=== PATIENT | female | born 1940 | race African-American/Black ===

== ENCOUNTER 2017-05-17 17:10 | Inpatient (IN) | payer MEDICARE, BC ==
[~2017-05-17] VITALS: Ht 170.2 cm; Wt 59.0 kg
[~2017-05-17 17:10] MED LIST: ATOR20TA PO; CHOL500010 PO; LEVO137T32 PO; MEDR5TAB PO; METF500T4 PO; OGEN PO; POTA20TA82 PO; TRINTELLIX PO; VALS1TAB34 PO; ZOLP10TA2 PO
[2017-05-17] MEDS ORDERED: FLUT1DIS2 (17:27)
[2017-05-17] MEDS ORDERED: CIPR-213 (17:27)
[2017-05-17] MEDS ORDERED: ERGO500013 (17:27)
[2017-05-17] MEDS ORDERED: ONDANSETRON HCL 4MG/2ML VIAL IV STA (19:21)
[2017-05-17 19:45] LABS: BASOPHILS % 0.6 % (0.0-2.0); EOSINOPHILS % 0.6 % (0.0-5.0); HEMATOCRIT. 41.8 % (36.0-48.0); HEMOGLOBIN. 14.2 g/dL (12.0-16.0); LYMPHOCYTES % 15.1 % (20.0-50.0); MEAN CORPUSCULAR HEMOGLOBIN 34.2 pg (28.0-32.0); MEAN CORPUSCULAR VOLUME 100.7 fL (81.0-99.0); MEAN PLATELET VOLUME 9.1 fl (7.4-10.4); MONOCYTES % 5.8 % (2.0-8.0); NEUTROPHILS % 77.9 % (40.0-76.0); PLATELET 255 x1000/uL (130-400); RED BLOOD CELL COUNT 4.15 mill/uL (4.2-5.4); RED CELL DISTRIBUTION WIDTH 13.3 % (11.6-14.6)
[2017-05-17 19:49] LABS: INR 1.1; PROTHROMBIN TIME 11.5 sec (9.4-11.6)
[2017-05-17 19:55] LABS: CARBON DIOXIDE 21 mEq/L (21-32); CHLORIDE 105 mEq/L (98-107)
[2017-05-17 19:58] LABS: TROPONIN I < 0.02 ng/mL (0.00-0.04)
[2017-05-17] MEDS ORDERED: SODIUM CHLORIDE 0.9% 1,000 ML IV ONE (21:00)
[2017-05-17] MEDS ORDERED: SODIUM CHLORIDE 0.9% 1,000 ML IV SCH (21:35)
[2017-05-17] MEDS ORDERED: ACETAMINOPHEN 325MG TABLET PO PRN (21:45)
[2017-05-17] MEDS ORDERED: IBUPROFEN 600MG TABLET PO PRN (21:45)
[2017-05-18] VITALS (7 sets, daily range): BP systolic 113–155; BP diastolic 44–66
[2017-05-18] MEDS ORDERED: DIPHENHYDRAMINE 50MG/ML VIAL IV PRN (02:30)
[2017-05-18] MEDS ORDERED: NA PHOS,M-B/NA PHOS,DI-BA ENEMA 118ML PR PRN (02:30)
[2017-05-18] MEDS ORDERED: NACL IV PRN (02:30)
[2017-05-18] MEDS ORDERED: SODIUM CHLORIDE IV PRN (02:30)
[2017-05-18] MEDS ORDERED: MAGNESIUM/ALUMINUM HYDROXIDE/SIMETHICONE 30ML UDC PO PRN (02:30)
[2017-05-18] MEDS ORDERED: ACETAMINOPHEN 325MG TABLET PO PRN (02:30)
[2017-05-18] MEDS ORDERED: IPRATROPIUM/ALBUTEROL 0.5-3(2.5)MG/3ML NEB INH PRN (02:30)
[2017-05-18] MEDS ORDERED: DOCUSATE SODIUM 100MG CAPSULE PO PRN (02:30)
[2017-05-18] MEDS ORDERED: GUAIFENESIN 200MG/10ML SUGAR FREE UDC PO PRN (02:30)
[2017-05-18] MEDS ORDERED: LORAZEPAM 0.5MG TABLET PO PRN (02:30)
[2017-05-18] MEDS ORDERED: ONDANSETRON HCL 4MG/2ML VIAL IV PRN (02:30)
[2017-05-18] MEDS ORDERED: DEXT IV PRN (02:30)
[2017-05-18] MEDS: IPRATROPIUM/ALBUTEROL 0.5-3(2.5)MG/3ML NEB HHN SCH ×5 (04:45→19:28)
[2017-05-18] MEDS: SODIUM CHLORIDE 0.9% INJ 3ML FLUSH IVF SCH ×3 (06:00→22:00)
[2017-05-18 06:33] LABS: BASOPHILS % 0.7 % (0.0-2.0); EOSINOPHILS % 1.2 % (0.0-5.0); HEMOGLOBIN. 12.5 g/dL (12.0-16.0); LYMPHOCYTES % 34.5 % (20.0-50.0); MEAN CORPUSCULAR HEMOGLOBIN 35.2 pg (28.0-32.0); MEAN CORPUSCULAR VOLUME 101.2 fL (81.0-99.0); MEAN PLATELET VOLUME 9.6 fl (7.4-10.4); MONOCYTES % 8.3 % (2.0-8.0); NEUTROPHILS % 55.3 % (40.0-76.0); PLATELET 224 x1000/uL (130-400); RED BLOOD CELL COUNT 3.56 mill/uL (4.2-5.4); RED CELL DISTRIBUTION WIDTH 13.1 % (11.6-14.6)
[2017-05-18] MEDS ORDERED: DEXTROSE 50% WATER 50ML SYRINGE IV PRN (07:30)
[2017-05-18 07:42] LABS: PHOSPHORUS 2.2 mg/dL (2.5-4.9)
[2017-05-18] MEDS: BLOOD SUGAR DIAGNOSTIC STRIP TEST SCH ×4 (07:42→21:00)
[2017-05-18] MEDS: INSULIN LISPRO 100 UNITS/ML SUBCUT SCH ×3 (07:50→18:41)
[2017-05-18 08:15] LABS: CLARITY URINE CLEAR (CLEAR); COLOR URINE YELLOW (YELLOW); GLUCOSE URINE NEGATIVE (NEGATIVE); KETONES URINE NEGATIVE (NEGATIVE); LEUKOCYTE ESTERASE URINE NEGATIVE (NEGATIVE); NITRITE URINE NEGATIVE (NEGATIVE); OCCULT BLOOD URINE NEGATIVE (NEGATIVE); PH URINE 6.5 (4.5-8.0); PROTEIN URINE NEGATIVE (NEGATIVE); SPECIFIC GRAVITY URINE 1.015 (1.005-1.030)
[2017-05-18 08:40] LABS: *AMPHETAMINES SCREEN URINE NEGATIVE (NEGATIVE); *BARBITURATES SCREEN URINE NEGATIVE (NEGATIVE); *BENZODIAZEPINES SCREEN URINE NEGATIVE (NEGATIVE); *COCAINE SCREEN URINE NEGATIVE (NEGATIVE); CANNABINOID URINE SCREEN PRESUMTIVE POSITIVE (NEGATIVE); METHADONE URINE SCREEN NEGATIVE (NEGATIVE); OPIATES URINE SCREEN NEGATIVE (NEGATIVE); PHENCYCLIDINE URINE SCREEN NEGATIVE (NEGATIVE)
[2017-05-18] MEDS ORDERED: POTASSIUM PHOS,M-BASIC-D-BASIC 20 MMOL in DEXT 5% WATER 243.3333 ML IV SCH (12:00)
[2017-05-18] MEDS ORDERED: MAGNESIUM 4 G PREMIX 100 ML IV SCH (12:00)
[2017-05-19] VITALS: BP 144/56
[2017-05-19] MEDS: INSULIN LISPRO 100 UNITS/ML SUBCUT SCH ×5 (00:08→21:00)
[2017-05-19] MEDS: MVI, ADULT NO.1 10 ML in DEXT 5%/0.45% NACL 1000ML 1,000 ML IV SCH ×4 (00:14→00:20)
[2017-05-19] MEDS: IPRATROPIUM/ALBUTEROL 0.5-3(2.5)MG/3ML NEB HHN SCH ×6 (00:17→20:38)
[2017-05-19 07:14] LABS: CARBON DIOXIDE 26 mEq/L (21-32); CHLORIDE 109 mEq/L (98-107); PHOSPHORUS 3.1 mg/dL (2.5-4.9); T4 FREE 1.69 ng/dL (0.76-1.46)
[2017-05-19] MEDS: BLOOD SUGAR DIAGNOSTIC STRIP TEST SCH ×4 (07:20→21:13)
[2017-05-19 07:22] LABS: HEPATITIS B SURFACE ANTIGEN NEGATIVE
[2017-05-19 07:49] LABS: HEPATITIS B CORE AB IGM NEGATIVE
[2017-05-19 07:51] LABS: HEPATITIS A AB IGM NEGATIVE (NEGATIVE)
[2017-05-19 08:00] VITALS: BP 127/48
[2017-05-19 08:35] LABS: VITAMIN B12 SERUM > 2000.0 pg/mL (211-911)
[2017-05-19 12:00] VITALS: BP 151/58
[2017-05-19] MEDS ORDERED: POTASSIUM BICARB/CIT ACID 25 MEQ TABLET.EFF PO SCH (12:00)
[2017-05-19 12:08] LABS: BG BASE EXCESS -2.2 mmol/L (-2.0-2.0); BG CARBOXYHEMOGLOBIN 0.5 % (0.5-1.5); BG DEOXYHEMOGLOBIN 2.9 % (0.0-5.0); BG FRACTION INSPIRED OXYGEN 21; BG HCO3 ACT 21.8 mmol/L (22.0-26.0); BG METHEMOGLOBIN 0.2 % (0.0-1.5); BG OXYGEN SATURATION 97.1 % (92.0-98.5); BG OXYHEMOGLOBIN 96.4 % (94.0-97.0); BG PCO2 34.7 mmHg (35.0-45.0); BG PH 7.415 (7.350-7.450); BG SAMPLE SITE RIGHT RADIAL; BG TOTAL HEMOGLOBIN 13.4 g/dL (12.0-18.0); BG VENT MODE ROOM AIR
[2017-05-19] MEDS: SODIUM CHLORIDE 0.9% INJ 3ML FLUSH IVF SCH ×2 (14:07→21:14)
[2017-05-19 16:00] VITALS: BP 134/61
[2017-05-19 20:00] VITALS: BP 163/73
[2017-05-20] VITALS: BP 150/66
[2017-05-20] MEDS: IPRATROPIUM/ALBUTEROL 0.5-3(2.5)MG/3ML NEB HHN SCH ×2 (00:48→04:00)
[2017-05-20 04:00] VITALS: BP 138/54
[2017-05-20] MEDS: SODIUM CHLORIDE 0.9% INJ 3ML FLUSH IVF SCH (07:06)
[2017-05-20] MEDS: BLOOD SUGAR DIAGNOSTIC STRIP TEST SCH (07:06)
[2017-05-20] MEDS: INSULIN LISPRO 100 UNITS/ML SUBCUT SCH (07:06)
[2017-05-20 07:36] LABS: PHOSPHORUS 2.9 mg/dL (2.5-4.9); T4 FREE 1.54 ng/dL (0.76-1.46)
[2017-05-20 08:13] LABS: CANCER ANTIGEN 125 9.1 U/mL (0.0-38.1)
[2017-05-20] MEDS ORDERED: POTASSIUM BICARB/CIT ACID 25 MEQ TABLET.EFF PO SCH (09:00)
[2017-05-20 10:57] VITALS: BP 123/84
== END 2017-05-20 11:20 | disposition home health service (06) | DRG 392 ==
LOC: ER 20:19 → 6EST 21:37 → ENRESERV 23:10
PROVIDERS: ADMIT Internal Medicine; ATTEND Internal Medicine
DX: R13.10 Dysphagia, unspecified (principal); R64 Cachexia; J44.9 Chronic obstructive pulmonary disease, unspecified; E11.9 Type 2 diabetes mellitus without complications; I10 Essential (primary) hypertension; E78.5 Hyperlipidemia, unspecified; F32.9 Major depressive disorder, single episode, unspecified; F17.200 Nicotine dependence, unspecified, uncomplicated; Z85.038 Personal history of other malignant neoplasm of large intestine; Z68.20 Body mass index [BMI] 20.0-20.9, adult; Z79.899 Other long term (current) drug therapy; Z90.49 Acquired absence of other specified parts of digestive tract; Z90.89 Acquired absence of other organs; Z98.51 Tubal ligation status; Z90.710 Acquired absence of both cervix and uterus
CPT/HCPCS: 36415; 36600; 70551; 71010; 80053; 80061; 80069; 80076; 80305; 81003; 82270; 82375; 82378; 82607; 82746; 82805; 82962; 83036; 83540; 83550; 83735; 83880; 84100; 84439; 84443; 84481; 84484; 84550; 85025; 85610; 85651; 86301; 86304; 86677; 86705; 86709; 86803; 87015; 87045; 87086; 87340; 87427; 87449; 87493; 89055; 93005; 93970; 94640; 94664; 96374; 99285; J1815; J2405; J3475; J3490; J7030; J7040; J7060; J7620

== ENCOUNTER 2019-02-17 17:45 | Emergency (ER) | payer MEDICARE, BC ==
[~2019-02-17] VITALS: Ht 170.2 cm; Wt 67.0 kg
[~2019-02-17 17:45] MED LIST changes: +CIPR-213; +ERGO500013; +FLUT1DIS2; -METF500T4 PO
[2019-02-17 17:58] VITALS: BP 117/50
== END 2019-02-17 22:32 | disposition left against medical advice (07) ==
LOC: ER 20:52
DX: Z53.21 Procedure and treatment not carried out due to patient leaving prior to being seen by health care provider (principal)